=== PATIENT | male | born 1970 | race Hispanic/Latino ===

== ENCOUNTER 2017-10-25 09:01 | Emergency (ER) | payer BC ==
[~2017-10-25] VITALS: Ht 170.2 cm; Wt 72.6 kg
[~2017-10-25 09:01] MED LIST: BACTRIM DS TAB1 EACH PO; IBUPROFEN800 M1 PO; KEFLEX500 M1 PO; KEFLEX500 MG PO; MULTIVITAMIN1 TAB PO; TYLENOL #31 TAB PO
[2017-10-25 09:28] VITALS: BP 133/87
--- NOTE | 2017-10-25 10:42 | ED GENERAL ADULT ---
History of Present Illness General Chief Complaint: Lower Extremity Problems Stated Complaint: "BURNING SENSATION IN MY RIGHT KNEE" Source: patient, old records Exam Limitations: no limitations Vital Signs & Intake/Output Vital Signs & Intake/Output ED Intake and Output 10/26 0000 10/25 1200 Intake Total 0 Output Total Balance 0 Intake, Oral 0 Patient 160 lb Weight Weight Reported by Patient Measurement Method Allergies Coded Allergies: NO KNOWN ALLERGIES (04/08/17) Reconcile Medications Cephalexin (Keflex) 500 MG CAPSULE 1 CAP PO Q6H PRN cellulitis Hydrocodone/Acetaminophen (Columbia 5-325 Tablet) 5 MG-325 MG TABLET 1 TAB PO Q4- 6 PRN PRN PAIN Ibuprofen 800 MG TABLET 1 TAB PO TID PRN pain/fever Sulfamethoxazole/Trimethoprim (Bactrim Ds Tablet) 800 MG-160 MG TABLET 1 TAB PO BID cellulitis Triage Note: PT PRESENTS TO THE ER C/O RKNEE PAIN..PT WAS SEEN HERE ON FRI FOR THAT SAME AND PER PT "I WAS GIVEN A TON OF MEDS, THEY SAID I HAD AN INFECTION" PT STATES THAT THE SWELLING IS BETTER BUT PT STATES HE CANT SLEEP DUE TO THE PAIN AND BURNING SENSATION. Triage Nurses Notes Reviewed? yes Onset: Gradual Duration: day(s): (5), better, continues in ED Timing: single episode today Injury Environment: home Severity: moderate, severe Severity Numbers: 9 No Modifying Factors: none HPI: 47-year-old male with no past medical history presents for evaluation of right knee pain. Patient was seen here several days ago diagnosed with a right lotion be cellulitis. He was started on antibiotics. He feels like the redness and swelling has improved sniffily however the pain is still there. He's been taking ibuprofen without much improved. He states At Night. He Says Pain Is Burning. He Is Able to Walk and Bear Weight. He's Had No Fevers. No Spring Redness or Discharge. Past History Travel History Traveled to [place] past 21 day No Medical History Any Pertinent Medical History? see below for history Neurological: NONE EENT: NONE Cardiovascular: NONE Respiratory: NONE Gastrointestinal: NONE Hepatic: NONE Renal: NONE Musculoskeletal: NONE Psychiatric: NONE Endocrine: NONE Blood Disorders: NONE Cancer(s): NONE SECURITY OFFICER/Reproductive: NONE Tetanus Vaccine: 04/08/17 Surgical History Surgical History: non-contributory Psychosocial History What is your primary language Persian Tobacco Use: Never used Family History Hx Contributory? No Review of Systems Review of Systems Constitutional: Reports: no symptoms. EENTM: Reports: no symptoms. Respiratory: Reports: no symptoms. Cardiovascular: Reports: no symptoms. GI: Reports: no symptoms. Genitourinary: Reports: no symptoms. Musculoskeletal: Reports: joint pain, muscle pain, muscle stiffness. Skin: Reports: no symptoms. Neurological/Psychological: Reports: no symptoms. Hematologic/Endocrine: Reports: no symptoms. Immunologic/Allergic: Reports: no symptoms. All Other Systems: Reviewed and Negative Physical Exam Physical Exam General Appearance: well developed/nourished, no apparent distress, alert, awake Head: atraumatic, normal appearance Eyes: Bilateral: normal appearance, EOMI. Ears, Nose, Throat: hearing grossly normal Neck: normal inspection, supple, full range of motion Respiratory: no respiratory distress Back: normal inspection, normal range of motion Extremities: normal range of motion, no edema, there is a small amount of erythema around the lateral aspect of the right knee. Erythema has significant only received compared to previous. Swelling is improved. Full range motion of the knee is intact. The erythema is tender to palpation. No focal fluctuant areas no discharge neurovascular supply intact Neurologic/Psych: no motor/sensory deficits, awake, alert, oriented x 3, normal gait Skin: intact, normal color, warm/dry Core Measures ACS in differential dx? No CVA/TIA Diagnosis: No Sepsis Present: No Sepsis Focused Exam Completed? No Progress Differential Diagnoses I considered the following diagnoses in my evaluation of the patient: [ Cellulitis, abscess, septic arthritis, osteoarthritis, sprain, gout] Plan of Care: Patient seen and evaluated. The erythema and swelling appears to feeling improved compared to previous. He is afebrile. appears well. He is able to walk and bear weight. Patient be instructed to continue antibiotics continually Profen as needed. Columbia for severe pain. Keep the knee elevated and avoid excessive weightbearing and walking. Wear Eddie wrap. Discussed return cautions patient agrees the plan. Initial ED EKG: none Departure Departure Disposition: HOME OR SELF CARE Condition: Stable Clinical Impression Primary Impression: Cellulitis Qualifiers: Site of cellulitis: extremity Site of cellulitis of extremity: lower extremity Laterality: right Qualified Code: L03.115 - Cellulitis of right lower limb Referrals: Missy JAEGER,Gabino Peterson (PCP/Family) Farshad JAEGER,[place] Additional Instructions: Continue to take antibiotics as directed for the full course. Continue Tylenol and ibuprofen as needed for pain and Columbia for severe pain only this may cause drowsiness. Make a follow-up appointment with provided orthopedic doctor and your primary care doctor for this coming week. Monitor symptoms return with fever spreading redness worsening swelling worsening pain unable to bend the knee or any other concerns. Departure Forms: Customer Survey General Discharge Information Prescriptions: Current Visit Scripts Hydrocodone/Acetaminophen ([place] 5-325 Tablet) 1 TAB PO Q4-6 PRN PRN PAIN #10 TAB Critical Care Note Critical Care Note Critical Care Time: non-applicable
[2017-10-25] MEDS ORDERED: NORCO 5-325 TA1 EACH PO (10:43)
== END 2017-10-25 10:44 ==
LOC: ERH 09:01
DX: L03.115 Cellulitis of right lower limb (principal)